=== PATIENT | female | born 1985 | race African-American/Black ===

== ENCOUNTER 2023-08-12 13:58 | Outpatient (CLI) | payer OTHER | END 2023-08-12 13:59 | disposition home or self-care (01) | LOC: SCSRAD 13:58 | PROVIDERS: ATTEND Physician Assistant | DX: M54.50 Low back pain, unspecified (principal); M47.817 Spondylosis without myelopathy or radiculopathy, lumbosacral region | CPT/HCPCS: 72120 ==